=== PATIENT | female | born 1950 | race Asian ===

== ENCOUNTER → 2021-05-01 | Day surgery (SDC) | payer OTHER, MEDICARE | END | disposition home or self-care (01) | LOC: JRADUS-SUR 08:10 | PROVIDERS: ATTEND Internal Medicine | PROC: 0H9U3ZX Drainage of Left Breast, Percutaneous Approach, Diagnostic (ICD-10-PCS; principal; 2021-05-01) | DX: D24.2 Benign neoplasm of left breast (principal) | CPT/HCPCS: 19083; 77065-TC; 87899; A4648 ==